=== PATIENT | female | born 1990 | race African-American/Black ===

== ENCOUNTER 2017-10-29 10:43 | Emergency (ER) | payer SELFPAY ==
[2017-10-29 11:14] LABS: BASOPHILS % 0.2 (0.0-1.5); MEAN CORPUSCULAR HEMOGLOBIN 27.9 pg (28.0-34.0); MEAN CORPUSCULAR VOLUME 88.5 fl (80.0-100.0); MONOCYTES % 3.6 % (0.0-11.0); NEUTROPHILS # 6.3 # k/uL (1.4-7.7)
[2017-10-29 11:27] LABS: eGFR (Non-African) > 60
[2017-10-29] MEDS ORDERED: MECLIZINE HCL 25 MG TABLET PO ONE (11:42)
--- NOTE | 2017-10-29 12:42 | ED Physician Documentation ---
Dizziness - HISTORIAN Historian: patient - HPI Stated Complaint: Sudden onset of dizziness/nausea/tingling to both hands Chief Complaint: Dizziness Timing: sudden onset Duration: persistent Severity: severe Associated Symptoms: nausea Decreased Ability to Stand/ Walk: off balance Usually: walks w/o assistance Worsened By: nothing Further Comments: yes (27 year old patient was at working as PARKING MANAGER at [employer]; was giving a patient a bath when she suddenly became dizzy, "felt like I was going to pass out". Patient reports similar episode last week.) - ROS CONST: none EYES/ENT: none GI/: none LNMP: denies: missed periods MS/SKIN/LYMPH: none NEURO/PSYCH: none CVS/RESP: none - PAST HX Past History: none Cardiac Disease: none Surgeries/Procedures: none Allergies/Adverse Reactions: Allergies Allergy/AdvReac Type Severity Reaction Status Date / Time No Known Drug Allergies Allergy Verified 10/29/17 10:53 Home Medications: Ambulatory Orders Medication Instructions Recorded NK [NK] 10/29/17 - SOCIAL HX Smoking History: cigarettes - FAMILY HX Family History: denies: none - VITAL SIGNS Vital Signs: Vital Signs Temp Pulse Resp BP Pulse Ox 97.8 F 64 18 116/81 100 10/29/17 10:43 10/29/17 11:10 10/29/17 10:43 10/29/17 11:10 10/29/17 10:43 - REVIEWED ASSESSMENTS Nursing Assessment Reviewed: Yes Vitals Reviewed: Yes Progress - Progress Progress: Patient reports nystagmus since she was an ; states her eye doctor has done work up. Is due for check up. 1145 Lab results reviewed with patient; will give po meclizine. At discharge; patient states she feels better, "I would like to go back to work ". Discharge instructions reviewed, no questions. - EKG/XRAY/CT EKG: rhythm (Sr, rate 74) ED Results Lab/Radiology - Lab Results Lab Results: Lab Results 10/29/17 10/29/17 11:10 11:10 WBC 8.40 K/ul K/ul (4.00-12.00) RBC 4.60 M/ul M/ul (3.90-5.20) Hgb 12.8 g/dL g/dL (12.0-16.0) Hct 40.7 % % (34.5-46.5) MCV 88.5 fl fl (80.0-100.0) MCH 27.9 pg L pg (28.0-34.0) MCHC 31.5 g/dL g/dL (30.0-36.0) RDW 13.1 % % (11.3-14.3) Plt Count 248 K/mm3 K/mm3 (130-400) Neut % (Auto) 74.4 % % (39.0-79.0) Lymph % (Auto) 19.6 % % (16.0-50.0) [place] % (Auto) 3.6 % % (0.0-11.0) Eos % (Auto) 1.0 % % (0.0-6.8) Baso % (Auto) 0.2 (0.0-1.5) Neut # (Auto) 6.3 # k/uL # k/uL (1.4-7.7) Lymph # (Auto) 1.6 # k/uL # k/uL (0.6-4.0) [place] # (Auto) 0.3 # k/uL # k/uL (0.0-0.9) Eos # (Auto) 0.1 # k/uL # k/uL (0.0-0.6) Baso # (Auto) 0.0 # k/uL # k/uL (0.0-0.5) Reactive Lymphs % 1.2 % % (0.0-5.0) Reactive Lymphs # 0.1 # k/uL # k/uL (0.0-0.8) Sodium 142 mmol/L mmol/L (136-145) Potassium 3.6 mmol/L mmol/L (3.5-5.1) Chloride 101 mmol/L mmol/L (98-107) Carbon Dioxide 27 mmol/L mmol/L (22-30) BUN 10 mg/dL mg/dL (7-17) Creatinine 0.80 mg/dL mg/dL (0.52-1.04) Estimated Creat Clear 141 Est GFR ( Amer) > 60 (60 - ) Est GFR (Non-Af Amer) > 60 (60 - ) Glucose 83 mg/dL mg/dL (74-106) Calcium 9.4 mg/dL mg/dL (8.4-10.2) Total Bilirubin 1.2 mg/dL mg/dL (0.2-1.3) AST 23 U/L U/L (15-46) ALT 24 U/L U/L (13-69) Alkaline Phosphatase 55 U/L U/L (38-126) Total Protein 8.6 g/dL H g/dL (6.3-8.2) Albumin 5.1 g/dL H g/dL (3.5-5.0) - Orders Orders: ED Orders Category Date Time Status Orthostatics 1T Care 10/29/17 10:50 Active Sling to Affected Extremity 1T Care 10/29/17 12:17 Active Ulnar Gutter Splint 1T Care 10/29/17 12:17 Active CBC/PLATELET/DIFF Stat Lab 10/29/17 11:10 Completed CMP Stat Lab 10/29/17 11:10 Completed Meclizine HCl [Antivert] Med 10/29/17 11:42 Discontinued 25 mg PO NOW ONE EKG WITH COMPARISON Stat Ther 10/29/17 10:50 Ordered Dizziness Physical Exam - Physical Exam General Appearance: mild distress EENT: eye inspection normal, ENT inspection normal, pharynx normal, no signs of dehydration, SHAREE, no nystagmus, TM's nml, nystagmus (significant horizontal nystagmus noted; almost non stop. Continues with lateral eye movement. ) Respiratory: no respiratory distress, breath sounds nml, chest non-tender CVS: reg rate & rhythm, heart sounds normal, equal pulses, no murmur, no gallop , PMI nml, no JVD, no friction rub, 24 Abdomen: soft, no organomegaly, normal bowel sounds, no abdominal bruit, no distension Skin: normal color, warm/dry, NR, INT, PAL, DR Neuro: nml orientation, nml speech, nml cognition, mood/affect nml Extremities: non-tender, normal range of motion, no evidence of injury, no edema , J, [employer] Cranial: nml as tested, no evidence of acute CVA Cerebellar: nml as tested, nml gait (unsteady due to dizziness). No: abnml [id number] Sensorimotor: motor nml, sensation nml Discharge Clincal Impression: Vertigo Referrals: Artie Chong MD [Primary Care Provider] - 2 Days Additional Instructions: Rest A prescription for Meclizine was sent to the pharmacy. Make a follow up appointment with your eye doctor. Condition: Stable Disposition: 01 HOME, SELF-CARE Decision to Admit: NO Decision Time: 12:47
[2017-10-29 17:27] VITALS: BP 132/78
== END 2017-10-29 12:15 | disposition home or self-care (01) ==
LOC: ED 10:43
DX: R42 Dizziness and giddiness (principal)
CPT/HCPCS: 80053; 85025; 99282